=== PATIENT | male | born 1945 | race Caucasian/White ===

== ENCOUNTER 2021-12-20 10:19 | Inpatient (IN) ==
[2021-12-20] MEDS ORDERED: 0.9 % Sodium Chloride 1,000 ML IVC ONE ×2 (10:33→12:21)
[2021-12-20 11:22] LABS: Hemoglobin 12.7 g/dL (12.9-16.9); Mean Corpuscular HGB Conc 31.8 g/dL (31.6-35.5); Mean Corpuscular Hemoglobin 29.9 pg (28.0-33.3); Mean Corpuscular Volume 94.1 fL (83.0-100.0); Mean Platelet Volume 9.8 fL (9.4-12.4); Platelet Count 113 K/mcL (140-400); Red Blood Count 4.25 M/mcL (4.19-5.50); Red Cell Distribution Width 13.4 % (11.5-14.5); White Blood Count 3.6 K/mcL (4.3-11.1)
[2021-12-20 11:41] LABS: INR 1.2
[2021-12-20 12:11] LABS: Lymphocytes # 0.4 K/mcL (0.6-4.6); Monocytes # 0.4 K/mcL (0.0-1.3); Neutrophils # 2.8 K/mcL (1.6-8.9)
[2021-12-20 12:12] LABS: Platelet Estimate Slight Decrease (Normal)
[2021-12-20 12:21] LABS: Alanine Aminotransferase 5 Units/L (7-52); Albumin 3.6 g/dL (3.5-5.7); Albumin/Globulin Ratio 1.2 (1.1-2.2); Alkaline Phosphatase 76 Units/L (34-104); Aspartate Amino Transferase 60 Units/L (13-39); BUN/Creatinine Ratio 33 (6-26); Bilirubin,Direct 0.3 mg/dL (0.0-0.2); Bilirubin,Total 1.3 mg/dL (0.3-1.0); Blood Urea Nitrogen 45 mg/dL (8-23); Calcium 9.2 mg/dL (8.6-10.3); Carbon Dioxide 26 mEq/L (23-29); Chloride 104 mEq/L (98-107); Creatine Kinase 309 Units/L (30-223); Ethanol < 10 mg/dL (Less than 10); Globulin 2.9 g/dL (2.4-3.5); Glucose 136 mg/dL (70-105); Osmolality,Calculated 312 (280-300); Sodium 144 mEq/L (136-145); Total Protein 6.5 g/dL (6.4-8.9); Troponin I 0.05 ng/mL (< 0.04)
[2021-12-20] MEDS ORDERED: cefTRIAXone 1,000 MG in 0.9 % Sodium Chloride Mini Bag 100 ML IVPB ONE (12:21)
[2021-12-20 12:28] LABS: Bacteria,Urine Few per hpf (None-Few); Bilirubin,Urine Negative (Negative); Blood,Urine Moderate (Negative); Clarity,Urine Turbid (Clear); Color,Urine Yellow (Yellow); Glucose,Urine (UA) Normal (Normal); Granular Casts,Urine Few per lpf (None Seen); Hyaline Casts,Urine Many per lpf (None Seen); Ketones,Urine Trace mg/dL (Negative); Leukocyte Esterase,Urine Negative (Negative); Mucus,Urine Few per lpf (None-Few); Nitrite,Urine Negative (Negative); Protein,Urine >=300 mg/dL (Neg-Trace); Specific Gravity,Urine 1.023 (1.010-1.025)
[2021-12-20 12:35] LABS: Amphetamine Screen,Urine Negative ng/mL (Cutoff=1000); Barbiturate Screen,Urine Negative ng/mL (Cutoff=200); Benzodiazepines Screen,Urine Negative ng/mL (Cutoff=200); Cannabinoid Screen,Urine Negative ng/mL (Cutoff = 50); Cocaine Screen,Urine Negative ng/mL (Cutoff= 300); Opiate Screen,Urine Positive ng/mL (Cutoff=300); Phencyclidine Screen,Urine Negative ng/mL (Cutoff=25)
[2021-12-20] MEDS ORDERED: Azithromycin 500 MG in 0.9 % Sodium Chloride 250 ML IVPB ONE (13:00)
[2021-12-20] MEDS ORDERED: Ondansetron 4 MG/2 ML VIAL IVP PRN (13:41)
[2021-12-20] MEDS ORDERED: Acetaminophen 325 MG TABLET PO PRN (13:41)
[2021-12-20] MEDS ORDERED: Naloxone 0.4 MG/ML INJ IVP PRN (13:41)
[2021-12-20] MEDS ORDERED: Dextrose Gel 15 GM/37.5 ML TUBE PO PRN ×2 (13:53)
[2021-12-20] MEDS ORDERED: D5% in Water 1,000 ML IVC PRN (13:53)
[2021-12-20] MEDS ORDERED: *HR* Dextrose 50 % in Water (Syg) 50 ML SYRINGE IVP PRN (13:53)
[2021-12-20 14:44] LABS: Influenza A PCR Negative (Negative); Influenza B PCR Negative (Negative); Resp. Syncytial Virus PCR Negative (Negative)
[2021-12-20 15:32] LABS: SARS-CoV-2 by PCR (In House) Positive (Negative)
[2021-12-20 16:22] LABS: Troponin I 0.06 ng/mL (< 0.04)
[2021-12-20 16:29] LABS: ABG Base Excess -1 mEq/L (-2 to 3); ABG HCO3 23 mEq/L (21-27); ABG Oxygen Saturation 92 % (95-98); ABG PCO2 33 mmHg (35-45); ABG PH 7.44 pH Units (7.32-7.45); ABG PO2 61 mmHg (85-104); ABG TCO2 24 mEq/L (20-26)
[2021-12-20] MEDS ORDERED: Ipratropium 1 PUFF INHALER IH ONE (16:31)
[2021-12-20] MEDS ORDERED: Remdesivir 200 MG in 0.9 % Sodium Chloride 100 ML IVPB ONE (16:33)
[2021-12-20] MEDS ORDERED: cefTRIAXone 1,000 MG in Water for inj. (sterile) 10 ML IVP ONE (16:38)
[2021-12-20 16:53] LABS: C-Reactive Protein > 300 mg/L (Less than 10); Lactate Dehydrogenase 254 Units/L (140-271)
[2021-12-20 17:26] LABS: Thyroid Stimulating Hormone 0.449 mcIU/mL (0.340-5.600)
[2021-12-20 17:31] LABS: Estimated Average Glucose 120 mg/dl; Hemoglobin A1C 5.8 %
[2021-12-20] MEDS ORDERED: 0.9 % Sodium Chloride 1,000 ML IVC SCH (19:00)
[2021-12-20] MEDS: Ipratropium 1 PUFF INHALER IH SCH (20:29)
[2021-12-20] MEDS: Azithromycin 500 MG in 0.9 % Sodium Chloride 250 ML IVPB SCH (20:37)
[2021-12-20] MEDS ORDERED: Insulin LISPRO 300 UNITS/3 ML VIAL SUBQ SCH (21:00)
[2021-12-20] MEDS ORDERED: *HR* LORazepam 2 MG/ML VIAL IVP ONE (21:15)
[2021-12-20] MEDS: *HR* Heparin 5,000 UNIT/ML VIAL SQ SCH (21:56)
[2021-12-21] MEDS: Ipratropium 1 PUFF INHALER IH SCH ×7 (00:19→23:51)
[2021-12-21] MEDS: Insulin LISPRO 300 UNITS/3 ML VIAL SUBQ SCH ×4 (03:08→22:47)
[2021-12-21 04:55] LABS: Hematocrit 39.6 % (37.5-50.1); Immature Granulocytes % 0.7 % (0-4); Red Cell Distribution Width 13.3 % (11.5-14.5)
[2021-12-21 04:57] LABS: Basophils % 0.2 %; Hemoglobin 12.5 g/dL (12.9-16.9); Immature Platelets 2.7 % (1.1-6.1); Lymphocytes # 0.3 K/mcL (0.6-4.6); Lymphocytes % 4.6 %; Mean Corpuscular HGB Conc 31.6 g/dL (31.6-35.5); Mean Platelet Volume 10.5 fL (9.4-12.4); Monocytes # 0.2 K/mcL (0.0-1.3); Monocytes % 4.5 %; Neutrophils # 4.9 K/mcL (1.6-8.9); Platelet Count 105 K/mcL (140-400); Red Blood Count 4.17 M/mcL (4.19-5.50); White Blood Count 5.4 K/mcL (4.3-11.1)
[2021-12-21 05:12] LABS: Albumin 3.3 g/dL (3.5-5.7); Albumin/Globulin Ratio 1.2 (1.1-2.2); Bilirubin,Direct 0.4 mg/dL (0.0-0.2); Bilirubin,Indirect 0.6 mg/dL (0.0-1.0); Calcium 9.3 mg/dL (8.6-10.3); Globulin 2.8 g/dL (2.4-3.5); Magnesium 1.9 mg/dL (1.6-2.6); Phosphorous 3.3 mg/dL (2.7-4.5); Potassium 3.8 mEq/L (3.5-5.1); Total Protein 6.1 g/dL (6.4-8.9)
[2021-12-21 05:21] LABS: Platelet Estimate Slight Decrease (Normal); Poikilocytosis 1+ (Not Present)
[2021-12-21 05:22] LABS: Burr Cells 1+ (Not Present)
[2021-12-21] MEDS: *HR* Heparin 5,000 UNIT/ML VIAL SQ SCH ×3 (05:59→21:26)
[2021-12-21] MEDS: cefTRIAXone 2,000 MG in 0.9 % Sodium Chloride 20 ML IVP SCH (09:42)
[2021-12-21] MEDS: Remdesivir 100 MG in 0.9 % Sodium Chloride 100 ML IVPB SCH (17:36)
[2021-12-21] MEDS: Azithromycin 500 MG in 0.9 % Sodium Chloride 250 ML IVPB SCH (22:44)
[2021-12-22] MEDS: Insulin LISPRO 300 UNITS/3 ML VIAL SUBQ SCH ×4 (00:29→17:27)
[2021-12-22] MEDS: *HR* Heparin 5,000 UNIT/ML VIAL SQ SCH (04:27)
[2021-12-22 05:35] LABS: Hematocrit 40.9 % (37.5-50.1); Hemoglobin 12.6 g/dL (12.9-16.9); Immature Platelets 4.1 % (1.1-6.1); Mean Corpuscular HGB Conc 30.8 g/dL (31.6-35.5); Mean Corpuscular Hemoglobin 29.1 pg (28.0-33.3); Mean Corpuscular Volume 94.5 fL (83.0-100.0); Mean Platelet Volume 10.4 fL (9.4-12.4); Platelet Count 131 K/mcL (140-400); Red Blood Count 4.33 M/mcL (4.19-5.50); Red Cell Distribution Width 13.5 % (11.5-14.5); White Blood Count 5.9 K/mcL (4.3-11.1)
[2021-12-22 05:54] LABS: Albumin 3.2 g/dL (3.5-5.7); Albumin/Globulin Ratio 1.2 (1.1-2.2); Bilirubin,Direct 0.4 mg/dL (0.0-0.2); Bilirubin,Indirect 0.6 mg/dL (0.0-1.0); Globulin 2.7 g/dL (2.4-3.5); Total Protein 5.9 g/dL (6.4-8.9)
[2021-12-22 06:00] LABS: Calcium 9.7 mg/dL (8.6-10.3); Potassium 4.2 mEq/L (3.5-5.1); Troponin I 0.19 ng/mL (< 0.04)
[2021-12-22 08:14] LABS: Lymphocytes # 0.4 K/mcL (0.6-4.6); Monocytes # 0.1 K/mcL (0.0-1.3); Neutrophils # 5.4 K/mcL (1.6-8.9); Platelet Estimate Slight Decrease (Normal)
[2021-12-22] MEDS: cefTRIAXone 2,000 MG in 0.9 % Sodium Chloride 20 ML IVP SCH (10:32)
[2021-12-22] MEDS: DilTIAZem 50 MG/50 ML IV.SOLN IVC SCH ×4 (12:17→22:08)
[2021-12-22 13:30] LABS: ABG Base Excess -1 mEq/L (-2 to 3); ABG HCO3 21 mEq/L (21-27); ABG Oxygen Saturation 100 % (95-98); ABG PCO2 28 mmHg (35-45); ABG PH 7.48 pH Units (7.32-7.45); ABG PO2 161 mmHg (85-104); ABG TCO2 22 mEq/L (20-26)
[2021-12-22] MEDS ORDERED: *HR* Heparin 5,000 UNIT/ML VIAL IVP ONE (14:04)
[2021-12-22] MEDS ORDERED: *HR* Heparin 5,000 UNIT/ML VIAL IVP PRN ×2 (14:04)
[2021-12-22] MEDS: *HR* Metoprolol 5 MG/5 ML VIAL IVP PRN (14:12)
[2021-12-22] MEDS ORDERED: *HR* Digoxin 0.5 MG/2 ML AMPUL IVP ONE (15:21)
[2021-12-22] MEDS: Heparin 25,000UNIT/250ML 1/2NS 25,000 UNIT/250 ML IV.SOLN IVC SCH (15:54)
[2021-12-22 15:57] LABS: Heparin anti-factor XA UFH < 0.04 IU/mL (0.30-0.70)
[2021-12-22 15:58] LABS: INR 1.3; Prothrombin Time 14.8 Seconds (9.4-12.1)
[2021-12-22] MEDS: Piperacillin/Tazobactam 3.375 GM in 0.9 % Sodium Chloride Mini Bag 100 ML IVPB SCH (16:28)
[2021-12-22] MEDS: *HR* Digoxin 0.5 MG/2 ML AMPUL IVP SCH (21:15)
[2021-12-22] MEDS: Remdesivir 100 MG in 0.9 % Sodium Chloride 100 ML IVPB SCH (23:07)
[2021-12-23] MEDS: Piperacillin/Tazobactam 3.375 GM in 0.9 % Sodium Chloride Mini Bag 100 ML IVPB SCH ×3 (00:06→17:13)
[2021-12-23] MEDS: Insulin LISPRO 300 UNITS/3 ML VIAL SUBQ SCH ×4 (00:06→17:19)
[2021-12-23] MEDS: Dexmedetomidine HCl 400 MCG/100 ML MLS IVC SCH ×2 (00:07→13:05)
[2021-12-23 02:52] LABS: Basophils % 0.1 %; Hematocrit 38.6 % (37.5-50.1); Hemoglobin 12.1 g/dL (12.9-16.9); Immature Granulocytes % 0.7 % (0-4); Lymphocytes # 0.3 K/mcL (0.6-4.6); Lymphocytes % 3.9 %; Mean Corpuscular HGB Conc 31.3 g/dL (31.6-35.5); Mean Corpuscular Hemoglobin 29.2 pg (28.0-33.3); Mean Corpuscular Volume 93.2 fL (83.0-100.0); Mean Platelet Volume 10.8 fL (9.4-12.4); Monocytes # 0.4 K/mcL (0.0-1.3); Monocytes % 5.6 %; Neutrophils # 6.4 K/mcL (1.6-8.9); Platelet Count 166 K/mcL (140-400); Red Blood Count 4.14 M/mcL (4.19-5.50); Red Cell Distribution Width 13.6 % (11.5-14.5); Segmented Neutrophils % 89.7 %; White Blood Count 7.2 K/mcL (4.3-11.1)
[2021-12-23 03:31] LABS: Albumin/Globulin Ratio 1.3 (1.1-2.2); Bilirubin,Direct 0.2 mg/dL (0.0-0.2); Bilirubin,Indirect 0.5 mg/dL (0.0-1.0); Bilirubin,Total 0.7 mg/dL (0.3-1.0); Calcium 8.8 mg/dL (8.6-10.3); Globulin 2.3 g/dL (2.4-3.5); Potassium 3.6 mEq/L (3.5-5.1); Total Protein 5.3 g/dL (6.4-8.9); Troponin I 0.28 ng/mL (< 0.04)
[2021-12-23] MEDS: *HR* Digoxin 0.5 MG/2 ML AMPUL IVP SCH (03:47)
[2021-12-23] MEDS: DilTIAZem 50 MG/50 ML IV.SOLN IVC SCH ×2 (03:54→10:00)
[2021-12-23] MEDS ORDERED: D5% in Water 1,000 ML IVC SCH (12:30)
[2021-12-23] MEDS: Heparin 25,000UNIT/250ML 1/2NS 25,000 UNIT/250 ML IV.SOLN IVC SCH ×2 (14:18→17:21)
[2021-12-23] MEDS: Remdesivir 100 MG in 0.9 % Sodium Chloride 100 ML IVPB SCH (17:14)
[2021-12-24] MEDS: Piperacillin/Tazobactam 3.375 GM in 0.9 % Sodium Chloride Mini Bag 100 ML IVPB SCH ×2 (00:41→07:46)
[2021-12-24] MEDS: Insulin LISPRO 300 UNITS/3 ML VIAL SUBQ SCH (00:56)
[2021-12-24 08:10] LABS: Basophils % 0.2 %; Hematocrit 39.1 % (37.5-50.1); Hemoglobin 12.1 g/dL (12.9-16.9); Immature Granulocytes % 1.9 % (0-4); Lymphocytes # 0.2 K/mcL (0.6-4.6); Lymphocytes % 5.1 %; Mean Corpuscular HGB Conc 30.9 g/dL (31.6-35.5); Mean Corpuscular Hemoglobin 29.4 pg (28.0-33.3); Mean Corpuscular Volume 95.1 fL (83.0-100.0); Mean Platelet Volume 10.6 fL (9.4-12.4); Monocytes # 0.3 K/mcL (0.0-1.3); Neutrophils # 3.7 K/mcL (1.6-8.9); Platelet Count 164 K/mcL (140-400); Red Blood Count 4.11 M/mcL (4.19-5.50); Red Cell Distribution Width 13.9 % (11.5-14.5); Segmented Neutrophils % 85.8 %; White Blood Count 4.3 K/mcL (4.3-11.1)
[2021-12-24 08:35] LABS: Albumin 3.1 g/dL (3.5-5.7); Albumin/Globulin Ratio 1.3 (1.1-2.2); Bilirubin,Direct 0.2 mg/dL (0.0-0.2); Bilirubin,Indirect 0.5 mg/dL (0.0-1.0); Bilirubin,Total 0.7 mg/dL (0.3-1.0); Globulin 2.3 g/dL (2.4-3.5); Magnesium 2.3 mg/dL (1.6-2.6); Phosphorous 3.2 mg/dL (2.7-4.5); Potassium 3.4 mEq/L (3.5-5.1); Total Protein 5.4 g/dL (6.4-8.9); Troponin I 0.21 ng/mL (< 0.04)
[2021-12-24] MEDS: *HR* Metoprolol 5 MG/5 ML VIAL IVP PRN (10:26)
[2021-12-24] MEDS ORDERED: D5% in Water 1,000 ML IVC SCH (11:15)
[2021-12-24] MEDS ORDERED: Atropine Sulfate 1% 40 DROP/2 ML BOTTLE SL PRN (12:22)
[2021-12-24] MEDS: Remdesivir 100 MG in 0.9 % Sodium Chloride 100 ML IVPB SCH (17:18)
[2021-12-24] MEDS: *HR* LORazepam Oral Conc 2 MG/ML SL PRN (20:06)
[2021-12-24] MEDS: Morphine Sulfate Oral CONC 10 MG/0.5 ML ORAL.SYG SL PRN (20:29)
[2021-12-24 20:36] VITALS: BP 174/68; PULSE 92; TEMP 100.2; O2SAT 93
[2021-12-25] MEDS: Morphine Sulfate 2 MG/ML SYRINGE IVP PRN ×2 (00:57→10:22)
[2021-12-25] MEDS: *HR* LORazepam Oral Conc 2 MG/ML SL PRN ×2 (00:57→12:59)
[2021-12-25 04:04] LABS: Albumin/Globulin Ratio 1.3 (1.1-2.2); Bilirubin,Direct 0.2 mg/dL (0.0-0.2); Bilirubin,Indirect 0.6 mg/dL (0.0-1.0); Bilirubin,Total 0.8 mg/dL (0.3-1.0); Globulin 2.3 g/dL (2.4-3.5); Total Protein 5.3 g/dL (6.4-8.9)
[2021-12-25] MEDS: Morphine Sulfate Oral CONC 10 MG/0.5 ML ORAL.SYG SL PRN (05:14)
[2021-12-25] MEDS ORDERED: Acetaminophen 650 MG RECTAL SUPP RC PRN (10:34)
== END 2021-12-25 14:50 | disposition hospice, home (50) | DRG 871 ==
LOC: EMEROOARM 10:19 → 3NENU 10:19 → 2NNU 12-22 12:45 → 2ANU 12-24 17:43
PROVIDERS: ADMIT Internal Medicine; ATTEND Internal Medicine